=== PATIENT | female | born 1950 | race Caucasian/White ===

== ENCOUNTER 2017-02-16 16:34 | Emergency (ER) | payer MEDICARE, OTHER ==
[~2017-02-16] VITALS: Ht 160 cm; Wt 50.9 kg
[2017-02-16 16:39] VITALS: BP 130/78; PULSE 89; RESP 16; TEMP 98.4; O2SAT 96
[2017-02-16 18:43] LABS: BASOPHIL % 0.4 % (0.0-2.0); EOSINOPHIL % 0.5 % (0.0-4.0); HEMATOCRIT 38.2 % (35.0-46.0); HEMOGLOBIN 12.9 GM/DL (11.6-15.3); LYMPH % 31.4 % (9.0-44.0); MEAN CELL VOLUME 92.7 FL (80.0-100.0); MEAN CORPUSCULAR HEMOGLOBIN 31.4 PG (27.0-34.0); MEAN CORPUSCULAR HGB CONC 33.9 % (32.0-36.0); MEAN PLATELET VOLUME 7.9 FL (7.0-11.0); MONO % 7.1 % (0.0-8.0); MONOCYTE # 0.5 TH/MM3 (0-0.9); NEUT % 60.6 % (16.0-70.0); PLATELET COUNT 360 TH/MM3 (150-450); RED BLOOD COUNT 4.11 MIL/MM3 (4.00-5.30); RED CELL DISTRIBUTION WIDTH 13.6 % (11.6-17.2); WHITE BLOOD COUNT 6.5 TH/MM3 (4.0-11.0)
[2017-02-16 19:12] LABS: BICARBONATE 26.7 MEQ/L (21.0-32.0); CREATININE 0.55 MG/DL (0.50-1.00)
[2017-02-16 21:31] VITALS: BP 164/76; PULSE 61; RESP 16; O2SAT 98
[2017-02-16] MEDS ORDERED: LEVO50TA4 PO (21:51)
[2017-02-16] MEDS ORDERED: SIMV20TA PO (21:51)
[2017-02-16] MEDS ORDERED: FLUO40CA PO (21:51)
[2017-02-16] MEDS ORDERED: XANA1TAB2 PO (21:51)
[2017-02-16] MEDS ORDERED: TRAZ50TA12 PO (21:51)
[2017-02-16] MEDS ORDERED: CHOL5000 PO (21:51)
[2017-02-16] MEDS ORDERED: VALS1TAB65 PO (21:51)
[2017-02-16] MEDS ORDERED: ASPI-183 PO (21:51)
[2017-02-16] MEDS ORDERED: METO-309 PO (21:51)
[2017-02-16] MEDS ORDERED: FLUT50SP EACH NARE (21:51)
--- NOTE | 2017-02-16 22:37 | PD ---
HPI . Edema Chief Complaint: Edema Time Seen by Provider: 20:58 Travel History International Travel<30 days: No Contact w/Intl Traveler<30days: Yes Name of Country Traveled to: [place] Traveled to known affect area: No History of Present Illness HPI 66-year-old female status post recent flight from [place] and then drive from [place], notes having bilateral leg swelling. Patient denies any leg pain has no shortness of breath or chest pain.. Patient denies any history of bleeding dyscrasias clots or family history of same. Patient does not take any blood thinners. Denies fever chills sweats PFSH Past Medical History Narrative Medical Past medical history reviewed High Cholesterol: Yes Diminished Hearing: Yes ([place]) Hypertension: Yes Thyroid Disease: Yes Tetanus Vaccination: Unknown ?: Not Past Surgical History Eye Surgery: Yes (CATARCTS) Other Surgery: Yes (NOSE SX ) Social History Alcohol Use: No Tobacco Use: No Substance Use: No Allergies-Medications (Allergen,Severity, Reaction): Coded Allergies: Penicillins (Verified Allergy, Intermediate, 02/16/17) codeine (Verified Allergy, Intermediate, 02/16/17) gluten (Verified Allergy, Intermediate, 02/16/17) latex (Verified Allergy, Intermediate, 02/16/17) milk (Verified Allergy, Intermediate, 02/16/17) Reported Meds & Prescriptions Reported Meds & Active Scripts Active Reported Fluticasone Nasal [place] 50 Mcg/Act Naspr 50 Mcg EACH NARE BID 50 mcg/spray Xanax (Alprazolam) 1 Mg Tab 1 Mg PO Q6H PRN Lopressor (Metoprolol Tartrate) 50 Mg Tab 25 Mg PO BID Simvastatin 20 Mg Tab 20 Mg PO DAILY Levothyroxine (Levothyroxine Sodium) 50 Mcg Tab 50 Mcg PO DAILY Trazodone (Trazodone HCl) 50 Mg Tab 50 Mg PO HS Fluoxetine (Fluoxetine HCl) 40 Mg Cap 40 Cap PO DAILY Vitamin D3 (Cholecalciferol) 5,000 Unit Cap 5,000 Units PO DAILY Valsartan 160 Mg Tab 160 Mg PO BID Aspirin 325 Mg Tab 325 Mg PO DAILY Narrative Medication Allergies medications reviewed Review of Systems Except as stated in HPI: all other systems reviewed are Neg General / Constitutional: No: Fever Eyes: No: Visual changes HENT: No: Headaches Cardiovascular: No: Chest Pain or Discomfort Respiratory: No: Shortness of Breath Gastrointestinal: No: Abdominal Pain Genitourinary: No: Dysuria Musculoskeletal: Positive: Edema, No: Myalgias, Arthralgias, Limited ROM, Pain Skin: No Rash Neurologic: No: Weakness Psychiatric: No: Depression Endocrine: No: Polydipsia Hematologic/Lymphatic: No: Easy Bruising Physical Exam Narrative GENERAL: Awake alert oriented 3 no acute distress SKIN: Warm and dry. Color is normal diaphoresis cyanosis or pallor HEAD: Atraumatic. Normocephalic. EYES: Pupils equal and round. No scleral icterus. No injection or drainage. ENT: No nasal bleeding or discharge. Mucous membranes pink and moist. NECK: Trachea midline. No JVD. CARDIOVASCULAR: Regular rate and rhythm. RESPIRATORY: No accessory muscle use. Clear to auscultation. Breath sounds equal bilaterally. GASTROINTESTINAL: Abdomen soft, non-tender, nondistended. Hepatic and splenic margins not palpable. MUSCULOSKELETAL: Extremities without clubbing, cyanosis, mild edema bilateral lower ankles and feet less than 1+. No calf tenderness or popliteal fossa tenderness or fullness, no medial thigh tenderness along distribution of the great vessels.. No obvious deformities. NEUROLOGICAL: Awake and alert. No obvious cranial nerve deficits. Motor grossly within normal limits. Five out of 5 muscle strength in the arms and legs. Normal speech. PSYCHIATRIC: Appropriate mood and affect; insight and judgment normal. Data Data Last Documented VS Vital Signs Date Time Temp Pulse Resp B/P (MAP) Pulse Ox O2 Delivery O2 Flow Rate FiO2 02/16/17 21:31 61 16 164/76 (105) 98 Room Air 02/16/17 16:39 98.4 Orders Orders B-Type Natriuretic Peptide (02/16/17 16:40) Complete Blood Count With Diff (02/16/17 16:40) Basic Metabolic Panel (Bmp) (02/16/17 16:40) D-Dimer (02/16/17 20:59) Labs Laboratory Tests Test 02/16/17 18:18 02/16/17 21:39 White Blood Count 6.5 TH/MM3 Red Blood Count 4.11 MIL/MM3 Hemoglobin 12.9 GM/DL Hematocrit 38.2 % Mean Corpuscular Volume 92.7 FL Mean Corpuscular Hemoglobin 31.4 PG Mean Corpuscular Hemoglobin Concent 33.9 % Red Cell Distribution Width 13.6 % Platelet Count 360 TH/MM3 Mean Platelet Volume 7.9 FL Neutrophils (%) (Auto) 60.6 % Lymphocytes (%) (Auto) 31.4 % Monocytes (%) (Auto) 7.1 % Eosinophils (%) (Auto) 0.5 % Basophils (%) (Auto) 0.4 % Neutrophils # (Auto) 4.0 TH/MM3 Lymphocytes # (Auto) 2.0 TH/MM3 Monocytes # (Auto) 0.5 TH/MM3 Eosinophils # (Auto) 0.0 TH/MM3 Basophils # (Auto) 0.0 TH/MM3 CBC Comment DIFF FINAL Differential Comment Blood Urea Nitrogen 19 MG/DL Creatinine 0.55 MG/DL Random Glucose 90 MG/DL Calcium Level 9.0 MG/DL Sodium Level 137 MEQ/L Potassium Level 3.5 MEQ/L Chloride Level 102 MEQ/L Carbon Dioxide Level 26.7 MEQ/L Anion Gap 8 MEQ/L Estimat Glomerular Filtration Rate 110 ML/MIN B-Type Natriuretic Peptide 114 PG/ML D-Dimer Quantitative (PE/DVT) 0.24 MG/L FEU [facility] Medical Decision Making Medical Screen Exam Complete: Yes Emergency Medical Condition: Yes Medical Record Reviewed: Yes Differential Diagnosis Edema, dependent gravity dependent edema, lymphedema, DVT, Narrative Course D-dimer negative. Exam consistent with gravity dependent edema sitting prolonged periods. Discharge Diagnosis Primary Impression: Peripheral edema Patient Instructions: Edema (ED), General Instructions Additional Instructions: Elevate legs above your heart. Follow-up with your doctor. Return for worsening Disposition: 01 DISCHARGE HOME Condition: Stable Stephen Salazar MD Feb 16, 2017 22:37
== END 2017-02-16 23:20 | disposition home or self-care (01) ==
LOC: NEPE 16:34
DX: R60.0 Localized edema (principal); E07.9 Disorder of thyroid, unspecified; E78.00 Pure hypercholesterolemia, unspecified; I10 Essential (primary) hypertension
CPT/HCPCS: 80048; 83880; 85025; 85379; 99283